=== PATIENT | female | born 1965 | race Caucasian/White ===

== ENCOUNTER 2024-05-23 01:38 | Emergency (ER) | payer OTHER, SELFPAY ==
[2024-05-23 01:49] VITALS: BP 198/94; PULSE 79; TEMP 36.6; O2SAT 99; BMI 45.0
--- NOTE | 2024-05-23 01:59 | PC.NURSE ---
Small flap laceration planter section of foot.
--- NOTE | 2024-05-23 02:00 | XR_ITS ---
The [address] [address] Patient Name: LASHA HUNT MRN: [id number] date: 1965 Sex: F Assigned Patient Location: ER Current Patient Location: Accession/Order Number: [id number] Exam Date: 05/23/2024 02:10 Report Date: 05/23/2024 04:19 At the request of: GALLO MARKER Procedure: XR foot LT min 3V PROCEDURE: XR foot LT min 3V HISTORY: R/O FB, fell thru glass table COMPARISON: None. FINDINGS: BONES:Moderate-marked degenerative changes of the midfoot and forefoot. No acute fracture or dislocation. SOFT TISSUES:Soft tissue swelling/edema surrounding the foot. No radiopaque foreign body with specific attention to the plantar surface. EFFUSION:None visible. OTHER: Negative. XR/XR foot LT min 3V IMPRESSION: 1. No radiopaque foreign body. 2. No acute bone abnormality. Electronically authenticated by: FRANCHESKA CISNEROS Date: 05/23/2024 04:19
--- NOTE | 2024-05-23 02:01 | ED_ITS ---
HPI HPI - Fall General Chief Complaint: Fall Stated Complaint: FALL Time Seen by Provider: 05/23/24 01:42 Source: patient Mode of arrival: walk-in Limitations: no limitations History of Present Illness HPI Narrative: This 59-year-old female presents for evaluation of a left foot laceration. The patient was trying to cover up her air conditioner and fell thru a glass table sustaining a laceration to the base of her left foot. She denies striking her head. She has no neck or back pain. She does not know the date of her last tetanus shot. Related Data Allergies Allergy/AdvReac Type Severity Reaction Status Date / Time Penicillins Allergy Mild Blister Verified 05/23/24 01:54 Opioid HPI Opioid Management Most Recent Pain and Opioid Data: No Data to Display Exam Narrative Exam Narrative: Vital signs and Nursing Notes reviewed: Patient is afebrile with a normal pulse, blood pressure is elevated at 198/94, she is not hypoxic with pulse ox of 99% on room air General: Awake, alert, oriented, no acute distress, lying comfortably on the stretcher HEENT: Normocephalic atraumatic, mucous membranes are moist and pink, eyes are clear, normal conjunctiva, vision is grossly intact Neck: Nontender Chest: Lungs are clear to auscultation with good air entry, there is no wheezing rhonchi or rales appreciated no accessory muscle use, patient is speaking in complete sentences-no chest wall tenderness to palpation CVS: Regular rate and rhythm S1-S2, no murmurs rubs or gallops, pulses are brisk and equal bilaterally ABD: Soft, nondistended, nontender, no rebound guarding or rigidity, bowel sounds are normal, no pulsatile masses appreciated Musculoskeletal: There is no cervical, thoracic or lumbar tenderness to palpation Extremities: Proximally 1.5 cm avulsion laceration to the plantar aspect of the left foot. There is no notable foreign body or active bleeding noted. Patient has a large bunion on her first metatarsal and lateral deviation of her toes which appear to be arthritic in nature. Skin: Normal in appearance without rash,pallor, petechiae or purpura Neuro: No focal deficits Constitutional Vital Signs, click to edit/add: Last Vital Signs Temp 97.9 F 05/23/24 01:49 Pulse 79 05/23/24 01:49 Resp 20 05/23/24 01:49 BP 198/94 H 05/23/24 01:49 Pulse Ox 99 05/23/24 01:49 O2 Del Method Room Air 05/23/24 01:49 Course Vital Signs Vital signs: Vital Signs Temperature 97.9 F 05/23/24 01:49 Pulse Rate 79 05/23/24 01:49 Respiratory Rate 20 05/23/24 01:49 Blood Pressure 198/94 H 05/23/24 01:49 Pulse Oximetry 99 05/23/24 01:49 Oxygen Delivery Method Room Air 05/23/24 01:49 Temperature 97.9 F 05/23/24 01:49 Pulse Rate 79 05/23/24 01:49 Respiratory Rate 20 05/23/24 01:49 Blood Pressure 198/94 H 05/23/24 01:49 Pulse Oximetry 99 05/23/24 01:49 Oxygen Delivery Method Room Air 05/23/24 01:49 MDM - Fall MDM Narrative Medical decision making narrative: This 59-year female presents for evaluation of a laceration to her left foot after she fell through a glass table while trying to cover up her air conditioner in her house. She denies any additional injury. She has an approximately 1.5 cm stellate laceration to the plantar aspect of the left foot. There is no active bleeding. X-ray of the extremity does not show any fracture or foreign body. Tetanus was updated. The laceration was closed and the patient's foot was covered with a sterile bacitracin dressing. Discharge Plan Discharge Chief Complaint: Fall Clinical Impression: Laceration of foot Patient Disposition: Home, Self-Care Time of Disposition Decision: 02:53 Condition: Good Print Language: Italian Instructions: Care For Your Stitches (ED), Laceration (ED) Additional Instructions: Sutures can be removed in 10 days by your family physician. Keep your foot covered. Use bacitracin and a Band-Aid. Return to the emergency department for pain, redness, drainage or any concerns. Referrals: GAL HARLEY [Primary Care Provider] - 1 week Discharge Date/Time: 05/23/24 03:16 Procedures ED Procedure Instructions Procedures Procedures: Laceration repair; the left foot was cleaned with Hibiclens and water and infiltrated with 1% lidocaine. Once anesthesia was obtained 4, 3-0 Ethilon sutures were placed in the laceration with good wound edge approximation. Patient tolerated procedure well. A sterile bacitracin dressing was applied by the nursing staff.
[2024-05-23] MEDS: ADACEL DIPH,PERTUSS(ACELL),TET VAC/PF 0.5 ML ADULT SYRINGE IM (03:01)
[2024-05-23] MEDS: BACITRACIN 0.9 GM PACKET 1 PACKET TOPICAL (03:01)
[2024-05-23] MEDS: LIDOCAINE HCL 1% 100 MG/10 ML MDV INJ (03:03)
== END 2024-05-23 03:16 | disposition home or self-care (01) ==
PROVIDERS: Emergency Provider Emergency Medicine; Family Provider Internal Medicine; PCP Internal Medicine
DX: S91.312A Laceration without foreign body, left foot, initial encounter (principal); W25.XXXA Contact with sharp glass, initial encounter; Z23 Encounter for immunization
CPT/HCPCS: 12001; 73630; 90471; 90715; 99284

== ENCOUNTER 2025-01-07 17:01 | Inpatient (IN) | payer OTHER, SELFPAY ==
[2025-01-07 17:10] VITALS: BP 120/95; PULSE 85; TEMP 36.7; O2SAT 97; BMI 43.2
[2025-01-07] MEDS: 0.9 % SODIUM CHLORIDE 1,000 ML 1000 ML IV ×2 (17:33→19:01)
[2025-01-07 18:00] LABS: Hematocrit 40.3 % (36.0-48.0); Hemoglobin 13.6 g/dL (12.0-16.0); Immature Granulocytes Abs Auto 0.04 10^3/uL (0.00-0.03); Immature Granulocytes Pct Auto 0.3 % (0.0-0.5); Lymphocytes Absolute Auto 1.4 10^3/uL (1.2-3.8); Mean Corpuscular HGB Conc 33.7 g/dL (29.9-35.2); Mean Corpuscular Hemoglobin 29.4 pg (26.7-34.0); Mean Corpuscular Volume 87.2 fL (81.0-99.0); Platelet Count 301 10^3/uL (150-450); Red Blood Count 4.62 10^6/uL (4.20-5.40); White Blood Count 14.8 10^3/uL (4.0-11.0)
--- NOTE | 2025-01-07 18:21 | ED.GENADUL1 ---
HPI HPI - General Adult General Chief complaint: Nausea/Vomiting/Diarrhea Stated complaint: DEHYDRATED Time Seen by Provider: 01/07/25 17:08 Source: patient Mode of arrival: walk-in History of Present Illness HPI narrative: 59-year-old female presents because she is worried she is dehydrated. She has had some diarrhea for about 5 days. No recent hospitalization or antibiotic use. She threw up for the first time today. She states she has not really been able to eat or drink anything for the past 2 days. No fever. She has had abdominal cramps but does not complain of abdominal pain. Related Data Home Medications ?Medication ?Instructions ?Recorded ?Confirmed lisinopril 20 mg tablet 20 mg PO BID 01/07/25 01/07/25 Allergies Allergy/AdvReac Type Severity Reaction Status Date / Time azithromycin Allergy Severe Unknown Verified 01/07/25 17:16 Penicillins Allergy Mild Blister Verified 05/23/24 01:54 Review of Systems ROS Narrative A ten point review of systems is negative except as noted above. PFSH PFSH Social History Little interest or pleasure in doing things: not at all Feeling down, depressed, or hopeless: not at all Exam Narrative Exam Narrative: Nurses note and vital signs reviewed and patient is not hypoxic. General: The patient appears well and in no apparent distress. Patient is resting comfortably on cart. Skin: Warm, dry, no pallor noted. There is no rash noted. Head: Normocephalic, atraumatic Eye: Normal conjunctiva, no drainage Ears, Nose, Mouth, and Throat: oral mucosa is moist. Nares patent. Cardiovascular: Regular Rate and Rhythm Respiratory: Patient is in no distress, no accessory muscle use, lungs are clear to auscultation, no wheezing, rales or rhonchi Back: non-tender GI: Soft and nontender Musculoskeletal: The patient has no evidence of calf tenderness, no pitting edema, symmetrical pulses noted bilaterally Neurological: A&O, normal speech Psychiatric: Cooperative Constitutional Vital Signs, click to edit/add: Last Vital Signs Temp 98.1 F 01/07/25 17:10 Pulse 85 01/07/25 17:10 Resp 18 01/07/25 17:10 BP 120/95 H 01/07/25 17:10 Pulse Ox 97 01/07/25 17:10 O2 Del Method Room Air 01/07/25 17:10 Course Vital Signs Vital signs: Vital Signs Temperature 98.1 F 01/07/25 17:10 Pulse Rate 85 01/07/25 17:10 Respiratory Rate 18 01/07/25 17:10 Blood Pressure 120/95 H 01/07/25 17:10 Pulse Oximetry 97 01/07/25 17:10 Oxygen Delivery Method Room Air 01/07/25 17:10 Temperature 98.1 F 01/07/25 17:10 Pulse Rate 85 01/07/25 17:10 Respiratory Rate 18 01/07/25 17:10 Blood Pressure 120/95 H 01/07/25 17:10 Pulse Oximetry 97 01/07/25 17:10 Oxygen Delivery Method Room Air 01/07/25 17:10 Medical Decision Making MDM Narrative Medical decision making narrative: The patient has elevated BUN and creatinine. Her creatinine is 2.35. She is ordered 2 L of saline and the patient will be signed out to Dr. Meeks at change of shift. Differential Diagnosis Differential Diagnosis: Dehydration, acute kidney injury, gastroenteritis Lab Data Lab results reviewed: Yes I reviewed the patient's lab results Labs: Lab Results 01/07/25 Range/Units 17:30 WBC 14.8 H (4.0-11.0) 10^3/uL RBC 4.62 (4.20-5.40) 10^6/uL Hgb 13.6 (12.0-16.0) g/dL Hct 40.3 (36.0-48.0) % MCV 87.2 (81.0-99.0) fL MCH 29.4 (26.7-34.0) pg MCHC 33.7 (29.9-35.2) g/dL RDW 13.9 (11.0-15.0) % Plt Count 301 (150-450) 10^3/uL MPV 11.1 (9.5-13.5) fL Neut % (Auto) 85.5 H (43.0-75.0) % Lymph % (Auto) 9.3 L (20.5-60.0) % [place] % (Auto) 4.3 (1.7-12.0) % Eos % (Auto) 0.1 L (0.9-7.0) % Baso % (Auto) 0.5 (0.2-2.0) % Neut # (Auto) 12.7 H (1.4-6.5) 10^3/uL Lymph # (Auto) 1.4 (1.2-3.8) 10^3/uL [place] # (Auto) 0.6 (0.3-0.8) 10^3/uL Eos # (Auto) 0.0 (0.0-0.7) 10^3/uL Baso # (Auto) 0.1 (0.0-0.1) 10^3/uL Abs Immat Gran (auto) 0.04 H (0.00-0.03) 10^3/uL Imm/Tot Granulo (auto) 0.3 (0.0-0.5) % Sodium 139 (136-145) mmol/L Potassium 4.9 (3.5-5.1) mmol/L Chloride 104 (98-107) mmol/L Carbon Dioxide 16.8 L (21.0-32.0) mmol/L Anion Gap 23.1 BUN 59.0 H (7.0-18.0) mg/dL Creatinine 2.35 H (0.55-1.02) mg/dL Est GFR ( Amer) 25 L (>=60 mL/min/1.73m^2) Est GFR (Non-Af Amer) 21 L (>=60 mL/min/1.73m^2) BUN/Creatinine Ratio 25.1 Glucose 116 H (74-106) mg/dL Calcium 9.4 (8.5-10.1) mg/dL Discharge Plan Discharge Patient Disposition: Still a Patient
[2025-01-07 18:32] LABS: Anion Gap 23.1; Blood Urea Nitrogen 59.0 mg/dL (7.0-18.0); Calcium 9.4 mg/dL (8.5-10.1); Carbon Dioxide 16.8 mmol/L (21.0-32.0); Chloride 104 mmol/L (98-107); Estimated GFR (African America 25 (>=60 mL/min/1.73m^2); Estimated GFR (Non-African Ame 21 (>=60 mL/min/1.73m^2); Glucose 116 mg/dL (74-106); Potassium 4.9 mmol/L (3.5-5.1); Sodium 139 mmol/L (136-145)
[2025-01-07 18:39] VITALS: PULSE 71; O2SAT 99
[2025-01-07 19:56] LABS: Lactate/Lactic Acid 1.4 mmol/L (0.4-2.0)
[2025-01-07 20:59] LABS: Glucose Urine UA NEGATIVE (NEGATIVE)
[2025-01-07 21:13] VITALS: BP 151/72; PULSE 78; TEMP 36.4; O2SAT 93; BMI 44.2
[2025-01-07 21:19] LABS: Cast Seen? NONE SEEN #/LPF (NONE SEEN); Crystals Seen? None Seen #/HPF (None Seen)
[2025-01-07 21:20] LABS: Urine Culture Indicated NO
[2025-01-07] MEDS: 0.9 % SODIUM CHLORIDE 1,000 ML 125 ML IV (21:36)
--- NOTE | 2025-01-08 00:56 | US_ITS ---
The [address] [address] Patient Name: LASHA HUNT MRN: [id number] date: 1965 Sex: F Assigned Patient Location: Current Patient Location: Accession/Order Number: [id number] Exam Date: 01/08/2025 10:11 Report Date: 01/08/2025 10:13 At the request of: GISELL MCKEON MD Procedure: US renal BI BILATERAL RENAL AND BLADDER ULTRASOUND CLINICAL HISTORY: Renal failure. Nausea, vomiting and dehydration. COMPARISON: None Estimation of renal size is approximately 10.1 cm on the right and 8.6 cm on the left. No shadowing calculi or hydronephrosis are identified. A small exophytic cyst is noted at the lateral left kidney measuring 10 x 11 x 13 mm. There is no perinephric fluid. Incidental note is made of 2 stones within the gallbladder lumen. The urinary bladder is partially distended with a volume of 421 mL. No contour or intraluminal abnormalities are seen. US/US renal BI IMPRESSION: SMALL LEFT RENAL CYST. NO OBSTRUCTIVE UROPATHY. INCIDENTAL CHOLELITHIASIS. Impression dictated by: Whitney Collado M.D. 01/08/2025 10:13 AM Dictation Location: [place] [address] Electronically authenticated by: [id number] Y Date: 01/08/2025 10:13
[2025-01-08 03:55] VITALS: BP 124/71; PULSE 64; TEMP 36.9; O2SAT 94
[2025-01-08] MEDS: 0.9 % SODIUM CHLORIDE 1,000 ML 125 ML IV (06:12)
[2025-01-08 06:14] LABS: Hematocrit 34.7 % (36.0-48.0); Hemoglobin 11.4 g/dL (12.0-16.0); Immature Granulocytes Abs Auto 0.03 10^3/uL (0.00-0.03); Immature Granulocytes Pct Auto 0.3 % (0.0-0.5); Lymphocytes Absolute Auto 2.9 10^3/uL (1.2-3.8); Mean Corpuscular HGB Conc 32.9 g/dL (29.9-35.2); Mean Corpuscular Hemoglobin 29.3 pg (26.7-34.0); Mean Corpuscular Volume 89.2 fL (81.0-99.0); Platelet Count 228 10^3/uL (150-450); Red Blood Count 3.89 10^6/uL (4.20-5.40); White Blood Count 10.8 10^3/uL (4.0-11.0)
--- OUTSIDE RECORDS SUMMARY | 2025-01-08 06:20 | XMS_ITS | Encounter Summary ---
Author Organization [facility] Address [facility] [id number] [address] [place] [address] Care Team Providers Care Coin Machine Mechanic Name Role Phone Lane Harrison MD Primary Care Provider [phone] Reason for Visit * Reason Comments Med Refill Encounter Details Date Type Department Care Team (Late st Contact Info) Description 06/30/2020 Refill [facility] [address] [place] [address] [place] [address] [place] [address] Lane Harrison MD [address] [place] [address], [address] [place] [address] Social History Tobacco Use Types Packs/Day Years Used Date Smoking Tobacco: Never Assessed Childcare Answer Date Recorded Childcare Unknown 12/05/2018 Employment Answer Date Recorded Employment Unknown 12/05/2018 Comments Unknown Sex and Gender Information Value Date Recorded Sex Assigned at Not on file Legal Sex Female 11:24 AM EDT Gender Identity Not on file Sexual Orientation Not on file documented as of this encounter Miscellaneous Notes * Telephone Encounter - Bertha Martines CMA - 06/30/2020 3:12 PM EST duplicate documented in this encounter Plan of Treatment Not on file documented as of this encounter Visit Diagnoses Not on filedocumented in this encounter Care Teams Coin Machine Mechanic Relationship Specialty Start Date End Date Lane Harrison MD [address] [place] [address], [address] [place] [address] PCP - General Pediatrics 12/26/17 documented as of this encounter
--- OUTSIDE RECORDS SUMMARY | 2025-01-08 06:20 | XMS_ITS | Encounter Summary ---
Author Organization [facility] [employer] [facility] Address [facility] [id number] [address] [place] [address] Care Team Providers Care Ruby On Rails Software Developer Name Role Phone Lane Harrison MD Primary Care Provider [phone] Reason for Visit * Reason Comments Med Refill Encounter Details Date Type Department Care Team (Late st Contact Info) Description 11/04/2022 Refill [facility] [address] [place] [address] [address] [place] [address] Lane Harrison MD [address] [place] [address], [address] [place] [address] Social History Tobacco Use Types Packs/Day Years Used Date Smoking Tobacco: Never Smokeless Tobacco: Never Alcohol Use Standard Drinks/Week Comments Never 0 (1 standard drink = 0.6 oz pur e alcohol) AUDIT-C Answer Date Recorded Q1: How often do you have a drink containing alc ohol? Never 07/23/2020 Q2: How many drinks containi ng alcohol do you have on a typical day when you are drinking? Not asked 07/23/2020 Q3: How often do you have six or more drinks on one occasion? Never 07/23/2020 PHQ-2 Answer Date Recorded Total Score 0 07/23/2020 Childcare Answer Date Recorded Childcare Unknown 12/05/2018 Employment Answer Date Recorded Employment Unknown 12/05/2018 Purpose - Life Answer Date Recorded Purpose and direction in life Unknown Comments No Sex and Gender Information Value Date Recorded Sex Assigned at Not on file Legal Sex Female 11:24 AM EDT Gender Identity Not on file Sexual Orientation Not on file documented as of this encounter Miscellaneous Notes * Telephone Encounter - Bertha Martines CMA - 11/04/2022 9:51 AM EDT Patient needs an appointment for further refills documented in this encounter Plan of Treatment Not on file documented as of this encounter Visit Diagnoses Not on filedocumented in this encounter Additional Health Concerns Assessment Noted Time PHQ-9 Depression Total Score: 0 07/23/19 10:36 AM EST documented as of this encounter Care Teams Ruby On Rails Software Developer Relationship Specialty Start Date End Date Lane Harrison MD [address] [place] [address], [address] [place] [address] PCP - General Pediatrics 12/26/17 documented as of this encounter
--- OUTSIDE RECORDS SUMMARY | 2025-01-08 06:20 | XMS_ITS | Encounter Summary ---
Author Organization [facility] Address [facility] [id number] [address] [place] [address] Care Team Providers Care Linen Tech Name Role Phone Lane Harrison MD Primary Care Provider [phone] Encounter Details Date Type Department Care Team (Late st Contact Info) Description 05/03/2023 Orders Only [facility] [address] [facility] 1 [place] [address] Bertha Martines CMA Chronic pain of both knees Social History Tobacco Use Types Packs/Day Years [...] PHQ-2 Answer Date Recorded Total Score 0 01/03/2023 Childcare Answer Date Recorded Childcare Unknown 12/05/2018 Employment Answer Date Recorded Employment Unknown 12/05/2018 Hunger Screening Answer Date Recorded Within the past 12 months we worried whether our food would run out before we got money to buy more. Never True 01/03/2023 Within the past 12 months th e food we bought just didn't last and we didn't have money to get more. Never True 01/03/2023 Purpose - Life Answer Date Recorded Purpose and direction in life Unknown Comments No Sex and Gender Information Value Date Recorded Sex Assigned at Not on file Legal Sex Female 11:24 AM EDT Gender Identity Not on file Sexual Orientation Not on file documented as of this encounter Plan of Treatment Not on file documented as of this encounter Visit Diagnoses Diagnosis Chronic pain of both knees documented in this encounter Additional Health Concerns Assessment Noted Time PHQ-9 Depression Total Score: 0 01/04/20 23 3:35 PM EDT documented as of this encounter Care Teams Linen Tech Relationship Specialty Start Date End Date Lane Harrison MD [address] [place] [address], [address] [place] [address] PCP - General Pediatrics 12/26/17 documented as of this encounter
--- OUTSIDE RECORDS SUMMARY | 2025-01-08 06:20 | XMS_ITS | Encounter Summary ---
Author Organization [facility] Address [facility] [id number] [address] [place] [address] Care Team Providers Care Mold Worker Name Role Phone Lane Harrison MD Primary Care Provider Encounter Details Date Type Department Care Team (Late st Contact Info) Description 05/17/2023 Orders Only [facility] [address] [address] External, Scanning Provider Social History Tobacco Use Types Packs/Day Years [...] on file documented as of this encounter Procedures Procedure Name Priority Date/Time Associated Diagnosis Comments SARS COV 2 (COVID-19) STAT 05/16/2023 documented in this encounter Results * SARS COV 2 (COVID-19) (05/16/2023) EXTERNAL SARS COV 2 Negative Negative MANUALLY TRANSCRIBED RESULTS Nasopharyngeal structure / Unknown 05/16/2023 Narrative MANUALLY TRANSCRIBED RESULTS - 05/16/2023 Result in urgent care encounter us Scanning Provider External MICROBIOLOGY - GENERA L ORDERABLES Final Result MANUALLY TRANSCRIBED RESULTS documented in this encounter Visit Diagnoses Not on filedocumented in this encounter Additional Health Concerns Assessment Noted Time PHQ-9 Depression Total Score: 0 01/04/20 23 3:35 PM EDT documented as of this encounter Care Teams Mold Worker Relationship Specialty Start Date End Date Lane Harrison MD [address] [place] [address], [address] [place] [address] PCP - General Pediatrics 12/26/17 documented as of this encounter
--- OUTSIDE RECORDS SUMMARY | 2025-01-08 06:20 | XMS_ITS | Encounter Summary ---
Author Organization [facility] Address [facility] [id number] [address] [place] [address] Care Team Providers Care Septic Pump Truck Driver Name Role Phone Lane Harrison MD Primary Care Provider [phone] Encounter Details Date Type Department Care Team (Late st Contact Info) Description 09/07/2021 Orders Only [facility] [address] [address] External, Scanning Provider Social History [...] Procedure Name Priority Date/Time Associated Diagnosis Comments COLOGUARD Routine 09/03/2020 documented in this encounter Results * HM COLOGUARD (09/03/2020) EXTERNAL COLOGUARD Negative MANUALLY TRANSCRIBED RESULTS 09/03/2020 us Scanning Provider External HEALTH MAINTENANCE nal Result MANUALLY TRANSCRIBED RESULTS documented in this encounter Visit Diagnoses Not on filedocumented in this encounter Additional Health Concerns Assessment Noted Time PHQ-9 Depression Total Score: 0 07/23/19 21 10:36 AM EST documented as of this encounter Care Teams Septic Pump Truck Driver Relationship Specialty Start Date End Date Lane Harrison MD [address] [place] [address], [address] [place], [place] [id number] PCP - General Pediatrics 12/26/17 documented as of this encounter
--- OUTSIDE RECORDS SUMMARY | 2025-01-08 06:20 | XMS_ITS | Encounter Summary ---
Author Organization [facility] Address [id number] [address] [place] [address] Care Team Providers Care Service Station Operator Name Role Phone Lane Harrison MD Primary Care Provider [phone] Reason for Visit * Reason Onset Date Comments Med Refill 11/17/2022 Encounter Details Date Type Department Care Team (Late st Contact Info) Description 11/17/2022 Refill [facility] [address] [id number] Bertha Martines CMA Social History Tobacco Use Types Packs/Day Years [...] documented as of this encounter Care Teams Service Station Operator Relationship Specialty Start Date End Date Lane Harrison MD [address] [place] [address], [address] [place] [address] PCP - General Pediatrics 12/26/17 documented as of this encounter
--- OUTSIDE RECORDS SUMMARY | 2025-01-08 06:20 | XMS_ITS | Encounter Summary ---
Author Organization [facility] Address [facility] [id number] [address] [place] [address] Care Team Providers Care Munitions Worker Name Role Phone Lane Harrison MD Primary Care Provider [phone] Reason for Visit * Reason Comments Med Refill Encounter Details Date Type Department Care Team (Late st Contact Info) Description 01/25/2024 Refill [facility] [address] [place] [address] [address] [place] [address] Lane Harrison MD [address] [place] [address], [address] [place] [address] Social History Tobacco Use Types [...] Telephone Encounter - Bertha Martines CMA - 01/25/2024 5:02 PM EDT duplicate documented in this encounter Plan of Treatment Not on file documented as of this encounter Visit Diagnoses Not on filedocumented in this encounter Additional Health Concerns Assessment Noted Time PHQ-9 Depression Total Score: 0 01/04/20 23 3:35 PM EDT documented as of this encounter Care Teams Munitions Worker Relationship Specialty Start Date End Date Lane Harrison MD [address] [place] [address], [place] [address] PCP - General Pediatrics 12/26/17 documented as of this encounter
--- OUTSIDE RECORDS SUMMARY | 2025-01-08 06:20 | XMS_ITS | Clinical Summary ---
Author Organization [facility] tem Address [id number] [address] [place] [address] Care Team Providers Care Commissioner Of Relocation Services Name Role Phone Lane Harrison MD Primary Care Provider [phone] Allergies Active Allergy Reactions Criticality Noted Date Comments Erythromycin GI Disturbance 08/29/2013 Penicillins 12/10/2012 Medications lisinopriL (PRINIVIL,ZESTR IL) 20 mg tablet Take 1 tablet (20 mg total) by mouth in the morning and 1 tablet (20 mg total) before bedtime. 180 tablet 3 03/05/2024 Active Active Problems Problem Noted Date Diagnosed Date Acute left-sided low back pain without sciatica 11/24/2022 Essential hypertension 07/23/2020 Immunizations Immunization Administration Dates Next Due COVID-19, mRNA, LNP-S, PF, 100mcg/0.5mL Dose Family History Medical History Relation Name Comments Cancer Father Lung Breast cancer Mother Cancer Mother breast Breast cancer Sister 1 ALEXIA Cancer Sister 1 ALEXIA breast Breast cancer Sister 2 SOFYA Relation Name Status Comments Father Mother Sister 1 ALEXIA Sister 2 SOFYA Alive Social History Tobacco Use Types Packs/Day Years Used Date Smoking Tobacco: Never Smokeless Tobacco: Never Tobacco Cessation:Counseling Given: No Alcohol Use Standard Drinks/Week Comments Never 0 [...] PHQ-2 Answer Date Recorded Total Score 0 03/05/2024 Childcare Answer Date Recorded Childcare Unknown 12/05/2018 Employment Answer Date Recorded Employment Unknown 12/05/2018 Hunger Screening Answer Date Recorded Within the past 12 months we worried whether our food would run out before we got money to buy more. Never True 03/05/2024 Within the past 12 months th e food we bought just didn't last and we didn't have money to get more. Never True 03/05/2024 Purpose - Life Answer Date Recorded Purpose and direction in life Unknown Comments No Sex and Gender Information Value Date Recorded Sex Assigned at Not on file Legal Sex Female 11:24 AM EDT Gender Identity Not on file Sexual Orientation Not on file Last Filed Vital Signs Vital Sign Reading Time Taken Comments Blood Pressure 128/99 03/05/2024 8:24 AM EDT Pulse 79 03/05/2024 8:24 AM EDT Temperature 36.3 C (97.4 F) 06/05/2023 10:29 AM EST Respiratory Rate - - Oxygen Saturation 98% 11/24/2022 11:24 AM EDT Inhaled Oxygen Concentration - - Weight 105.7 kg (233 lb) 03/05/2024 8:24 AM EDT Height 146.1 cm (4' 9.5 ) 03/05/2024 8:24 AM EDT Body Mass Index 49.55 03/05/2024 8:24 AM EDT Plan of Treatment Health Maintenance Due Date Last Done Comments Adult BMI Follow Up Plan 1981 DTaP,Tdap and Td Vaccines (1 - Tdap) 1982 Pap Smear 1984 Zoster (Shingles) Vaccine (1 of 2) 2013 COVID-19 Vaccine ( season) 2024, 11/10/2020 Influenza Vaccine 02/24/2025 Adult BMI Screening 03/05/2025 03/05/2024 Depression Screening 03/05/2025 03/05/2024 Tobacco Screening 03/05/2025 03/05/2024 Colon Cancer Screening 3 Year Cologuard 03/26/2027 1 , 09/03/2020 Medical Devices Not on file Procedures Procedure Name Priority Date/Time Associated Diagnosis Comments COLOGUARD NON-[facility] Routine 03/26/2024 6:45 AM EDT Screening for colon cancer from Last 3 Months or Most Recently Relevant to Health Maintenance Results * Cologuard Non-[facility] (03/26/2024 6:45 AM EDT) EXTERNAL COLOGUARD Negative Negative 2023 8:38 PM EDT [facility] (CLIA #:[id number]) Comment: NEGATIVE TEST RESULT. A negative Cologuard result indicates a low likelihood that a colorectal cancer (CRC) or advanced adenoma (adenomatous polyps with more advanced pre-malignant features) is present. The chance that a person with a negative Cologuard test has a colorectal cancer is less than 1 in 1500 (negative predictive value >99.9%) or has an advanced adenoma is less than 5.3% (negative predictive value 94.7%). These data are based on a prospective cross-sectional study of 10,000 individuals at average risk for colorectal cancer who were screened with both Cologuard and colonoscopy. (Damaris Mak et al, N Engl J Med 2014;370(14):1617-1052) The normal value (reference range) for this assay is negative. COLOGUARD RE-SCREENING RECOMMENDATION: Periodic colorectal cancer screening is an important part of preventive healthcare for asymptomatic individuals at average risk for colorectal cancer. Following a negative Cologuard result, the [place] Cancer Society and U.S. Multi-Society Task Force screening guidelines recommend a Cologuard re-screening interval of 3 years. References: [place] [employer] Guideline for Colorectal Cancer Screening: https://www.cancer.org/cancer/dyzem-ejivxq-hwqlzv/mshmeefrz-dejbzfbix-yeyjvnx/ac s-rec ommendations.html.; Ramon ALVRAEZ, Ed LANZA, Porter TYLER, Colorectal Cancer Screening: Recommendations for Physicians and Patients from the U.S. Multi-Society Task Force on Colorectal Cancer Screening , Am J Gastroenterology 2017; 112:2138-0122. TEST DESCRIPTION: Composite algorithmic analysis of stool DNA-biomarkers with hemoglobin immunoassay. Quantitative values of individual biomarkers are not reportable and are not associated with individual biomarker result reference ranges. Cologuard is intended for colorectal cancer screening of adults of either sex, 45 years or older, who are at average-risk for colorectal cancer (CRC). Cologuard has been approved for use by the U.S. FDA. The performance of Cologuard was established in a cross sectional study of average-risk adults aged 50-84. Cologuard performance in patients ages 45 to 49 years was estimated by sub-group analysis of near-age groups. Colonoscopies performed for a positive result may find as the most clinically significant lesion: colorectal cancer [4.0%], advanced adenoma (including sessile serrated polyps greater than or equal to 1cm diameter) [20%] or non- advanced adenoma [31%]; or no colorectal neoplasia [45%]. These estimates are derived from a prospective cross-sectional screening study of 10,000 individuals at average risk for colorectal cancer who were screened with both Cologuard and colonoscopy. (Damaris Marques al, N Engl J Med 2014;370(14):3530-2600.) Cologuard may produce a false negative or false positive result (no colorectal cancer or precancerous polyp present at colonoscopy follow up). A negative Cologuard test result does not guarantee the absence of CRC or advanced adenoma (pre-cancer). The current Cologuard screening interval is every 3 years. ([place] Cancer Society and U.S. Multi-Society Task Force). Cologuard performance data in a 10,000 patient pivotal study using colonoscopy as the reference method can be accessed at the following location: www.[employer]/results. Additional description of the Cologuard test process, warnings and precautions can be found at www.[employer].com. Stool specimen (specimen) Rectum structure / Unknown 03/26/2024 6:45 AM EDT 03/27/2024 10:[address] Harrison MD LAB ORDERABLES Final Result [facility] (CLIA #:[id number]) [place] [address], from Last 3 Months or Most Recently Relevant to Health Maintenance Insurance [employer] Care Teams Commissioner Of Relocation Services Relationship Specialty Start Date End Date Lane Harrison MD [address] [place] [address], [address] [place] [address] PCP - General Pediatrics 12/26/17
--- OUTSIDE RECORDS SUMMARY | 2025-01-08 06:20 | XMS_ITS | Encounter Summary ---
[facility] Address [id number] [address] [place] [address] Care Team Providers Care Community Health Specialist Name Role Phone Lane Harrison MD Primary Care Provider [phone] Reason for Visit * Reason Onset Date Comments Med Refill 01/25/2024 Encounter Details Date Type Department Care Team (Late st Contact Info) Description 01/25/2024 Refill [facility] [address] [phone] Bertha Martines CMA Social History Tobacco Use [...] documented as of this encounter Care Teams Community Health Specialist Relationship Specialty Start Date End Date Lane Harrison MD [address] [place] [address], [address] [place] [address] PCP - General Pediatrics 12/26/17 documented as of this encounter
--- OUTSIDE RECORDS SUMMARY | 2025-01-08 06:20 | XMS_ITS | Encounter Summary ---
Author Organization [facility] Address [id number] [address] [place] [address] Care Team Providers Care Assistant Secretary Name Role Phone Lane Harrison MD Primary Care Provider [phone] Encounter Details Date Type Department Care Team (Late st Contact Info) Description 05/27/2024 Orders Only [facility] [address] [phone] External, Scanning Provider Social History [...] Procedure Name Priority Date/Time Associated Diagnosis Comments XR FOOT LT MIN 3 VWS Routine 05/23/2024 documented in this encounter Results * X-ray foot left minimum 3 views (05/23/2024) Anatomical Region Laterality Modality Lower Extremities, MSK, Foot Left Com puted Radiography 05/23/2024 us Scanning Provider External IMG DIAGNOSTIC IMAGIN G ORDERABLES Final Result documented in this encounter Visit Diagnoses Not on filedocumented in this encounter Additional Health Concerns Assessment Noted Time PHQ-9 Depression Total Score: 0 03/05/20 24 8:26 AM EDT documented as of this encounter Care Teams Assistant Secretary Relationship Specialty Start Date End Date Lane Harrison MD [address] [place] [address], [place] [address] PCP - General Pediatrics 12/26/17 documented as of this encounter
--- OUTSIDE RECORDS SUMMARY | 2025-01-08 06:20 | XMS_ITS | Clinical Summary ---
Author Organization [facility] Healthcare Address [address] [place] [address] Care Team Providers Care Bird Cage Assembler Name Role Phone Unavailable Primary Care Provider Unavailabl e Social History Tobacco Use Types Packs/Day Years Used Date Smoking Tobacco: Never Assessed Comments Unknown Sex and Gender Information Value Date Recorded Sex Assigned at Not on file Legal Sex Female 8:24 PM EDT Gender Identity Not on file Sexual Orientation Not on file Last Filed Vital Signs Vital Sign Reading Time Taken Comments Blood Pressure 158/93 12/26/2017 12:00 PM EDT Pulse - - Temperature - - Respiratory Rate - - Oxygen Saturation - - Inhaled Oxygen Concentration - - Weight 108 kg (238 lb) 12/26/2017 12:00 PM EDT Height 152.4 cm (5') 12/26/2017 12:00 PM EDT Body Mass Index 46.48 12/26/2017 12:00 PM EDT Plan of Treatment Not on file
--- OUTSIDE RECORDS SUMMARY | 2025-01-08 06:20 | XMS_ITS | Encounter Summary ---
[id number] [address] [place] [address] Care Team Providers Care Registered Nurse Renal Name Role Phone Lane Harrison MD Primary Care Provider [phone] Encounter Details Date Type Department Care Team (Late st Contact Info) Description 01/29/2024 Telephone [facility] [address] [phone] Bertha Martines CMA Social History Tobacco Use [...] documented as of this encounter Care Teams Registered Nurse Renal Relationship Specialty Start Date End Date Lane Harrison MD [address] [place] [address], [address] [place] [address] PCP - General Pediatrics 12/26/17 documented as of this encounter
[2025-01-08 06:34] LABS: Alanine Aminotransferase 23 U/L (14-59); Albumin Globulin Ratio 1.1; Albumin Level 3.0 g/dL (3.4-5.0); Alkaline Phosphatase 65 U/L (46-116); Anion Gap 15.5; Aspartate Amino Transferase 17 U/L (15-37); Blood Urea Nitrogen 44.0 mg/dL (7.0-18.0); Calcium 7.9 mg/dL (8.5-10.1); Carbon Dioxide 19.1 mmol/L (21.0-32.0); Chloride 114 mmol/L (98-107); Estimated GFR (African America >60 (>=60 mL/min/1.73m^2); Estimated GFR (Non-African Ame 58 (>=60 mL/min/1.73m^2); Globulin 2.7 g/dL; Glucose 101 mg/dL (74-106); Magnesium 2.0 mg/dL (1.8-2.4); Potassium 4.6 mmol/L (3.5-5.1); Sodium 144 mmol/L (136-145); Total Protein 5.7 g/dL (6.4-8.2)
[2025-01-08 08:00] VITALS: BP 98/60; PULSE 59; TEMP 36.4; O2SAT 96
[2025-01-08] MEDS: ENOXAPARIN SODIUM 30 MG/0.3 ML SYRINGE SUBQ (09:13)
--- NOTE | 2025-01-08 09:47 | CM.NOTE ---
Reviewed plan of care with Dr. Hathaway. Continue with current treatment plan. No discharge today.
--- NOTE | 2025-01-08 11:14 | P.HP_ITS ---
HPI H&P: HPI History of Present Illness Chief complaint: DEHYDRATED, JONA Narrative: Mrs. Mustafa is a 59-year-old female who came to the emergency room complaining of vomiting for 1 day and having diarrhea for 5 days. Abdominal cramps but no pain. No fever or chills. No hematemesis or melena. No recent travel. No recent unusual food intake. Patient was found to have JONA with metabolic acidosis. She takes ibuprofen and lisinopril. Opioid HPI Opioid Management Most Recent Pain and Opioid Data: Last Pain Assessment 01/07/25, 22:00 Last ORT Total Score 0 01/07/25, 21:13 Last ORT Risk Category Low Risk 01/07/25, 21:13 Review of Systems ROS Status of ROS 10 or more systems reviewed and unremark able except as noted in history and below [facility] Medical History (Updated 01/08/25 @ 11:15 by Mary Ann Hathaway MD) HTN (hypertension) ?I10 - Essential (primary) hypertension (ICD-10) Surgical History (Updated 01/07/25 @ 21:27 by Katlin Riggins RN) History of ear surgery ?Z98.890 - Other specified postprocedural states (ICD-10) Hx of tonsillectomy ?Z90.89 - Acquired absence of other organs (ICD-10) Hx of appendectomy ?Z90.49 - Acquired absence of other specified parts of digestive tract (ICD- 10) Family History (Updated 01/07/25 @ 21:28 by Katlin Riggins, JOVANNY) Father Family history of COPD (chronic obstructive pulmonary disease) Family history of cancer Family history of diabetes mellitus Mother Family history of cancer Family history of diabetes mellitus Sister Family history of cancer Family history of diabetes mellitus Social History (Updated 01/07/25 @ 21:29 by Katlin Riggins RN) Within the past year, how often did you have a drink containing alcohol: monthly or less Smoking status: Never smoker Non-prescribed substance use: denies use Known occupational exposures/hazards: No Highest level of school completed/degree received: Associate degree: occupational, technical, vocational program Are you now , , , , never or living with a partner: never In a typical week, how many times do you talk on the telephone with family, friends, or neighbors: 3 or more times per week How often do you get together with friends or relatives: 3 or more times per week Little interest or pleasure in doing things: not at all Feeling down, depressed, or hopeless: not at all Feel stressed/tense/nervous/anxious/difficulty sleeping: not at all Do you think of yourself as: straight/heterosexual Gender Identity: female Meds Home Medications and Allergies Home Medications ?Medication ?Instructions ?Recorded ?Confirmed ?Type ibuprofen 200 mg tablet (IBU-200) 200 mg PO TID-QID MI N pain 01/07/25 01/07/25 History lisinopril 20 mg tablet 20 mg PO BID 01/07/25 History Allergies Allergy/AdvReac Type Severity Reaction Status Date / Time azithromycin Allergy Severe Unknown Verified 01/07/25 17:16 Penicillins Allergy Mild Blister Verified 05/23/24 01:54 Exam Narrative Exam Narrative: [pt is awake and alert. oriented to place, time and person HEENT: [place] conjunctiva and dry buccal mucosa Neck: Supple, no tenderness Endocrine: No Thyromegaly. Vascular: No JVD or carotid bruit. Lymphatic: No cervical lymphadenopathy. Chest: CTA no DTP. Heart RRR, no extra sound or murmur. Abd: Soft, no tenderness, no rebound and no rigidity. Increase abd girth therefore clinically I could not exclude the possibility of intra abd mass or organomegaly. LE: No cyanosis or clubbing, no varices or edema. Neuro: A A O. Nl speech, comprehension and attention. Nl and symetrical motor and tone examination through out. []] Constitutional Vital Signs, click to edit/add: Last Vital Signs Temp 97.6 F 01/08/25 08:00 Pulse 59 L 01/08/25 08:00 Resp 16 01/08/25 08:00 BP 124/71 01/08/25 03:55 Pulse Ox 96 01/08/25 08:00 O2 Del Method Room Air 01/08/25 08:00 Results Labs Labs: Short CBC 01/07/25 01/08/25 Range/Units 17:30 05:58 WBC 14.8 H 10.8 (4.0-11.0) 10^3/uL Hgb 13.6 11.4 L (12.0-16.0) g/dL Hct 40.3 34.7 L (36.0-48.0) % Plt Count 301 228 (150-450) 10^3/uL BMP 01/07/25 01/08/25 17:30 05:58 Sodium 139 144 Potassium 4.9 4.6 Chloride 104 114 H Carbon Dioxide 16.8 L 19.1 L BUN 59.0 H 44.0 H Creatinine 2.35 H 0.98 Glucose 116 H 101 Calcium 9.4 7.9 L Liver Function 01/08/25 Range/Units 05:58 Total Bilirubin 0.4 (0.2-1.0) mg/dL AST 17 (15-37) U/L ALT 23 (14-59) U/L Alkaline Phosphatase 65 (46-116) U/L Albumin 3.0 L (3.4-5.0) g/dL Urine 01/07/25 Range/Units 20:45 Urine Color Lt. yellow (YELLOW) Urine Clarity Clear (CLEAR) Urine pH 6.0 (5.0-9.0) Ur Specific [place] 1.015 (1.005-1.025) Urine Protein Trace (NEG/TRACE) mg/dL Urine Glucose (UA) Negative (NEGATIVE) mg/dL Assessment and Plan Assessment and Plan (1) Acute kidney injury: (2) Metabolic acidosis: (3) Medication adverse effect: (4) Enteritis: (5) Cholelithiasis: Plan Acute renal injury associated with metabolic acidosis. Likely hemodynamically mediated secondary to volume loss secondary to vomiting and diarrhea. Requested ultrasound to rule out obstructive uropathy. UA showed RBC that could indicate nephritic syndrome however given the resolution of JONA with IV fluid infusion would believe that her JONA is more likely related to volume loss and unlikely related to glomerulonephritis Furthermore, patient was taking lisinopril and ibuprofen that likely contributed to her JONA in the setting of volume depletion These medications are on hold at this time. Hypertension. Keep patient off lisinopril due to JONA Diarrhea and 1 episode of vomiting Resolved. No abdominal pain. No evidence of melena. I assume that this likely related to gastroenteritis. No strong justification for CT imaging of the abdomen and pelvis Consider additional GI investigation if this problem recurs DVT prophylaxis Lovenox subcu Incidental cholelithiasis with normal LFTs. No pain or tenderness in the right upper quadrant.
[2025-01-08 12:00] VITALS: BP 110/68; TEMP 36.4
--- NOTE | 2025-01-08 12:08 | SWNOTE1 ---
SW and I met with pt in room to discuss any potential d/c needs. Pt is from home and she lives alone. Pt voiced she does not use any DME. Does not have services coming into home. I asked pt if she had any concerns for d/c at this time. Pt voiced no. No needs identified at this time. SW to follow as needed.
[2025-01-08 16:00] VITALS: BP 106/72; PULSE 62; TEMP 36.4; O2SAT 95
[2025-01-08 19:42] VITALS: BP 124/70; PULSE 57; TEMP 36.3; O2SAT 94
[2025-01-09] VITALS: BP 122/78; PULSE 60; TEMP 36.6; O2SAT 95
[2025-01-09 04:00] VITALS: BP 117/75; PULSE 56; TEMP 36.3; O2SAT 96
[2025-01-09 06:12] LABS: Anion Gap 14.5; Blood Urea Nitrogen 30.0 mg/dL (7.0-18.0); Calcium 8.4 mg/dL (8.5-10.1); Carbon Dioxide 21.6 mmol/L (21.0-32.0); Chloride 112 mmol/L (98-107); Estimated GFR (African America >60 (>=60 mL/min/1.73m^2); Estimated GFR (Non-African Ame >60 (>=60 mL/min/1.73m^2); Glucose 110 mg/dL (74-106); Potassium 5.1 mmol/L (3.5-5.1); Sodium 143 mmol/L (136-145)
[2025-01-09 07:37] VITALS: BP 111/60; PULSE 60; TEMP 36.5; O2SAT 95
[2025-01-09] MEDS: ENOXAPARIN SODIUM 40 MG/0.4 ML SYRINGE SUBQ (09:07)
--- NOTE | 2025-01-09 10:20 | CM.NOTE ---
Rounds made with Dr. Hathaway, pt will discharge to home today. Pt denies any N/V. Dr. Hathaway will update note on how to resume lisinopril at discharge.
--- NOTE | 2025-01-09 10:56 | PM.DS1 ---
DS: Providers Provider Date of admission: 01/07/25 20:45 Primary care physician: GAL HARLEY DS: Diagnosis Discharge Diagnosis (1) Acute kidney injury: (2) Metabolic acidosis: (3) Medication adverse effect: (4) Enteritis: (5) Cholelithiasis: Plan As listed above and others that are not listed DS: Summary Hospital Course Hospital Course: Mrs. Mustafa is a 59-year-old female who came in with nausea and vomiting as well as diarrhea. Patient was found to have the following Acute renal injury associated with metabolic acidosis. Likely hemodynamically mediated secondary to volume loss secondary to vomiting and diarrhea. Requested ultrasound to rule out obstructive uropathy. This came back negative for obstructive uropathy UA showed RBC that could indicate nephritic syndrome however given the resolution of JONA with IV fluid infusion would believe that her JONA is more likely related to volume loss and unlikely related to glomerulonephritis Furthermore, patient was taking lisinopril and ibuprofen that likely contributed to her JONA in the setting of volume depletion These medications are on hold at this time. Hypertension. Keep patient off lisinopril due to JONA Her blood pressure is still at 111/60 without lisinopril. Discharge patient without lisinopril however her blood pressure is expected to climb up over the next week or 2 therefore patient is instructed to follow-up with her PCP to monitor her blood pressure and reinitiate blood pressure medication in the outpatient setting as deemed to be appropriate. Diarrhea and 1 episode of vomiting Resolved. No abdominal pain. No evidence of melena. I assume that this likely related to gastroenteritis. No strong justification for CT imaging of the abdomen and pelvis no abdominal tenderness. Consider additional GI investigation if this problem recurs DVT prophylaxis Lovenox subcu Incidental cholelithiasis with normal LFTs. No pain or tenderness in the right upper quadrant. Patient has few medical issues as listed above and others that are not listed. All appear to be stable. Patient is feeling great. No nausea or vomiting. No diarrhea. No abdominal pain. No abdominal tenderness. No fever or chills. No hematemesis or melena. I do not have any clear or strong clinical justification to extend inpatient hospitalization. Patient however may require close and frequent monitoring as well as additional work-up, investigation and therapeutic intervention that could take place from this point on post discharge. That is to prevent relapse, decompensation, rehospitalization and other medical implications. I instructed patient to ask her primary care doctor to obtain [facility] record entirely to address abnormalities seen on labs and imaging that I have and have not addressed during this hospitalization, follow-up on pending blood work, imaging and pathology is if available and to follow-up on needed medical care in the outpatient setting. Time Spent with Patient Time attestation: Total time spent providing and/or coordinating discharge services: Time spent: greater than 30 minutes Exam Narrative Exam Narrative: [pt is awake and alert. oriented to place, time and person HEENT: [place] conjunctiva and dry buccal mucosa Neck: Supple, no tenderness Endocrine: No Thyromegaly. Vascular: No JVD or carotid bruit. Lymphatic: No cervical lymphadenopathy. Chest: CTA no DTP. Heart RRR, no extra sound or murmur. Abd: Soft, no tenderness, no rebound and no rigidity. Increase abd girth therefore clinically I could not exclude the possibility of intra abd mass or organomegaly. LE: No cyanosis or clubbing, no varices or edema. Neuro: A A O. Nl speech, comprehension and attention. Nl and symetrical motor and tone examination through out. []] Constitutional Vital Signs, click to edit/add: Last Vital Signs Temp 97.7 F 01/09/25 07:37 Pulse 60 01/09/25 07:37 Resp 16 01/09/25 07:37 BP 111/60 01/09/25 07:37 Pulse Ox 95 01/09/25 07:37 O2 Del Method Room Air 01/09/25 07:37 DS: Data Data Completed and Pending Labs on day of discharge: Labs from last 24 hours 01/09/25 05:49 Sodium 143 Potassium 5.1 Chloride 112 H Carbon Dioxide 21.6 Anion Gap 14.5 BUN 30.0 H Creatinine 0.67 Est GFR ( Amer) >60 Est GFR (Non-Af Amer) >60 BUN/Creatinine Ratio 44.8 Glucose 110 H Calcium 8.4 L Discharge Plan Discharge Disposition: Home, Self-Care Condition: Fair Health Concerns: I may not have addressed or treated all of your medical illnesses or the abnormal blood work or imaging studies during this hospitalization. Please ask your primary care provider to obtain [facility] records entirely to follow up on all of the abnormal physical, laboratory, and imaging findings that I have not addressed. Please return back to the emergency room or seek medical attention if your symptoms worsen or return. Your blood pressure continues to be on the low side even without taking your blood pressure medication lisinopril. I would recommend you to stay off lisinopril for now. Please follow-up with your primary care doctor within a week. Your primary care doctor will monitor your blood pressure and decide if and when to resume blood pressure medication and the appropriate dose needed. Alternatively if you can buy blood pressure machine from a retail pharmacy. To check your blood pressure twice a day. Call your primary care doctor if your systolic blood pressure (the upper blood pressure number ) is climbing above 150 Please avoid taking ibuprofen excessively. No more than 1 or 2 tablets every other day Consider taking Tylenol instead Discharging you from [facility] does not mean that your medical care ends here and now. You may still need additional monitoring, work up, investigation, and treatment plan to be handled from this point on by out patient providers including your primary care provider and specialists. For any medication question, please contact your retail pharmacist or your primary care provider. Thank you. Discharge Medications: Held lisinopril 20 mg tablet 20 mg PO BID Hold Instructions: Resume on 01/17/25. Hold until you see your primary care doctor Discontinued ibuprofen [IBU-200] 200 mg tablet 200 mg PO TID-QID PRN (Reason: pain) Print Language: Zambian Forms: Portal Instructions Follow Up Appointments: 01/16 @ 10:15am with Dr. Harley [phone]
--- NOTE | 2025-01-09 12:06 | CM.NOTE ---
No discharge needs identified for patient, home with self care.
--- NOTE | 2025-01-13 10:56 | CM.DCFOLLOWU ---
1st attempt 01/13/25, no answer
--- NOTE | 2025-01-14 13:51 | CM.DCFOLLOWU ---
2nd attempt 01/14/25, no answer
== END 2025-01-09 12:33 | disposition home or self-care (01) | DRG 683 ==
LOC: ER 20:37 → MS 21:47
PROVIDERS: Emergency Medicine; Admitting Provider Internal Medicine; Emergency Provider Emergency Medicine; Family Provider Internal Medicine; PCP Internal Medicine; Visit Provider Internal Medicine
DX: N17.9 Acute kidney failure, unspecified (principal); E87.20 Acidosis, unspecified; I10 Essential (primary) hypertension; Z79.899 Other long term (current) drug therapy; Z90.49 Acquired absence of other specified parts of digestive tract; K52.9 Noninfective gastroenteritis and colitis, unspecified; K80.20 Calculus of gallbladder without cholecystitis without obstruction; T39.315A Adverse effect of propionic acid derivatives, initial encounter; T46.4X5A Adverse effect of angiotensin-converting-enzyme inhibitors, initial encounter; E86.9 Volume depletion, unspecified
CPT/HCPCS: 36415; 76775; 80048; 80053; 81001; 83605; 83735; 85025; 87045; 87046; 87427; 96361; 96374; 99285; J1650; J2405

== ENCOUNTER 2025-03-06 12:15 | Emergency (ER) | payer OTHER, SELFPAY ==
--- OUTSIDE RECORDS SUMMARY | 2025-03-03 12:05 | XMS_ITS | Continuity of Care Document ---
Author Organization [facility] Address [address] [place] [address] Phone Care Team Providers Care Senior Loan Officer Name Role Phone Lane Harrison MD Primary Care Provider Darleen Melendez APRN Attending Provider Care Teams Patient Care Team Team Status: Active Member Role Status Dates Lane Harrison MD Primary Care Provider Active Patient Care Team Team Status: Inactive Member Role Status Dates Lane Harrison MD Primary Care Provider Active Start: March 03, 2025 End: March 03, 2025 Darleen Melendez APRN Attending Provider Active S tart: March 03, 2025 End: March 03, 2025 Chief Complaint and Reason for Visit Chief Complaint Admit Date Sinus congestion, cough March 03, 2 025 3:11pm Allergies, Adverse Reactions, Alerts Allergen Type Severity Reaction Last Updated Verified Status erythromycin base Allergy Unknown Unknown Reaction S eptember 2024 3:28pm Yes Active penicillin G Allergy Unknown hives February 3:28pm Yes Active Social History Smoking Status Status Start Date End Date Date of Observa tion Never smoked tobacco (finding) November 24, 2023 1:25pm Observation Status Observation Response Date of Response Legal Sex Female (finding) Sex Assigned At Female 1965 Family History Relationship Condition Age at Onset Recorded Date/T evangelina brother Unknown father Malignant neoplasm Unknown mother Unknown Malignant neoplasm Unknown sister Unknown Problems Active Problems Medical Problem Onset Date Status Left hamstring muscle strain Unknown Act ivana Viral URI with cough Unknown Active HTN (hypertension) Unknown Active Medications Medication Status Dose Units Route Directions Qty Days St art Date Stop Date End Date Instructions Adherence Benzonatate 200 mg capsule Active 200 MG PO 2-3 TIMES PER DAY as needed for cough 12 5 2024 12:00a m Complies with drug therapy Lisinopril 20 mg tablet Active 20 MG PO Daily November 24, 2023 12:00a m Complies with drug therapy Naproxen 500 mg tablet Discont inued 500 MG PO Twice daily as needed for pain 30 15 November 24, 2023 12:00a m [facility]2024 3:39p m Cyclobenzap rine 10 mg tablet Discont inued 10 MG PO Three times daily as needed for muscle spasm 15 November 24, 2023 12:00a m 2024 3:39p m Vital Signs Vital Reading Result Reference Range Collection Date/Time Height 60 [in_i] March 03, 2025 3:39pm Weight 104.55 kg March 03, 2025 3:39pm Body Temperature 97.5 [degF] 97.6-99.0 March 032024 3:39pm Heart Rate 76 /min 60-100 March 03, 2025 3:39pm Respiratory rate 19 /min 12-24 March 032024 3:39pm Oxygen saturation by Pulse oximetry 97 % 95-100 March 03, 2025 3:39pm BP Systolic 148 mm[Hg] 100-140 March 03, 2025 3:39pm BP Diastolic 78 mm[Hg] 60-100 March 03, 2025 3:39pm BMI (Body Mass Index) 45.0 kg/m2 2024 3:39pm Advance Directives Advance Directive Response Recorded Date/ Time Advance Directives No November 23 1:10pm Insurance Providers Guarantor Yadira Mustafa Address [address] [place] [phone] Contact Info. Home Phone: Payer Policy Id Subscriber's Name Subscriber Id Effectiv e Date Expiration Date [facility] [id number] Yadira Mustafa [id number] [employer] [id number] Yadira Mustafa [id number] Encounters Encounter Location(s) Arrival/Admit Date Discharge/Depart Date Provider(s) Departed Physician/Prov ider Office Visit -[facility] [place] March 03, 2025 3:11pm March 03, 2025 4:04pm Cherri Mancuso APRN
[2025-03-06] VITALS (7 sets, daily range): BP systolic 166–178; BP diastolic 80–93; PULSE 81; TEMP 36.9; O2SAT 96–99; BMI 46.9
--- OUTSIDE RECORDS SUMMARY | 2025-03-06 12:20 | XMS_ITS | Encounter Summary ---
Author Organization [facility] [employer] [facility] [employer] Address [id number] [address] [place] [address] Care Team Providers Care Auto Motor Mechanic Name Role Phone Lane Harrison MD Primary Care Provider [phone] Reason for Visit * Reason Comments Med Refill Encounter Details Date Type Department Care Team (Late st Contact Info) Description 06/30/2020 Refill [facility] [address] [place] [address] [place] [address] [place] [address] Lane Harrison MD [address] [place] [address], [address] [place] [address] Social History Tobacco Use Types [...] on filedocumented in this encounter Care Teams Auto Motor Mechanic Relationship Specialty Start Date End Date Lane Harrison MD [address] [place] [address], [address] [place] [address] PCP - General Pediatrics 12/26/17 documented as of this encounter
--- OUTSIDE RECORDS SUMMARY | 2025-03-06 12:20 | XMS_ITS | Clinical Summary ---
Author Organization [facility] Address [address] [place] [address] Care Team Providers Care Air Surveillance Operator Name Role Phone Unavailable Primary Care Provider [...]
--- OUTSIDE RECORDS SUMMARY | 2025-03-06 12:20 | XMS_ITS | Encounter Summary ---
Author Organization [facility] Address [id number] [address] [place] [address] Care Team Providers Care Jewelry Repairer Name Role Phone Lane Harrison MD Primary Care Provider [phone] Encounter Details Date Type Department Care Team (Late st Contact Info) Description 01/09/2025 Orders Only [facility] [address] [address] External, Scanning Provider Social History [...] Procedure Name Priority Date/Time Associated Diagnosis Comments US RETROPERITONEAL COMPLETE Routine 01/08/2025 documented in this encounter Results * Ultrasound retroperitoneal complete (01/08/2025) Anatomical Region Laterality Modality Body Ultrasound 01/08/2025 us Scanning Provider External IMG US ORDERABLES Fin al Result documented in this encounter Visit Diagnoses Not on filedocumented in this encounter Additional Health Concerns Assessment Noted Time PHQ-9 Depression Total Score: 0 03/05/20 24 8:26 AM EDT documented as of this encounter Care Teams Jewelry Repairer Relationship Specialty Start Date End Date Lane Harrison MD [address] [place] [address], [address] [place] [address] PCP - General Pediatrics 12/26/17 documented as of this encounter
--- OUTSIDE RECORDS SUMMARY | 2025-03-06 12:20 | XMS_ITS | Encounter Summary ---
Author Organization [facility] Address [id number] [address] [place] [address] Care Team Providers Care Employee Services Manager Name Role Phone Lane Harrison MD Primary Care Provider [phone] Encounter Details Date Type Department Care Team (Late st Contact Info) Description 09/07/2021 Orders Only [facility] [address] [address] External, Scanning Provider Social History [...] documented as of this encounter Care Teams Employee Services Manager Relationship Specialty Start Date End Date Lane Harrison MD [address] [place] [address], [address] [place], [place] [id number] PCP - General Pediatrics 12/26/17 documented as of this encounter
--- OUTSIDE RECORDS SUMMARY | 2025-03-06 12:20 | XMS_ITS | Encounter Summary ---
Author Organization [facility] Address [id number] [address] [place] [address] Care Team Providers Care Parole Or Probation Officer Name Role Phone Lane Harrison MD Primary Care Provider Encounter Details Date Type Department Care Team (Late st Contact Info) Description 07/14/2020 Orders Only [facility] [address] [employer] [employer] [address] [place] [address] External, Scanning Provider Social History Tobacco Use Types Packs/Day Years Used Date Smoking Tobacco: Never Assessed Childcare Answer Date Recorded Childcare Unknown 12/05/2018 Employment Answer Date Recorded Employment Unknown 12/05/2018 Purpose - Life Answer Date Recorded Purpose and direction in life Unknown Comments Unknown Sex and Gender Information Value Date Recorded Sex Assigned at Not on file Legal Sex Female 11:24 AM EDT Gender Identity Not on file Sexual Orientation Not on file documented as of this encounter Plan of Treatment Not on file documented as of this encounter Procedures Procedure Name Priority Date/Time Associated Diagnosis Comments SARS COV 2 (COVID-19) Routine 07/13/2020 documented in this encounter Results * SARS COV 2 (COVID-19) (07/13/2020) EXTERNAL SARS COV 2 Negative Negative MANUALLY TRANSCRIBED RESULTS Comment:result in the urgent care encounter NASOPHARYNGEAL 07/13/2020 us Scanning Provider External MICROBIOLOGY - GENERA L ORDERABLES Final Result MANUALLY TRANSCRIBED RESULTS documented in this encounter Visit Diagnoses Not on filedocumented in this encounter Care Teams Parole Or Probation Officer Relationship Specialty Start Date End Date Lane Harrison MD [address] [place] [address], [address] [place] [address] PCP - General Pediatrics 12/26/17 documented as of this encounter
--- OUTSIDE RECORDS SUMMARY | 2025-03-06 12:21 | XMS_ITS | Encounter Summary ---
Author [facility] [employer] [facility] Address [id number] [address] [place] [address] Care Team Providers Care Under Cutter Name Role Phone Lane Harrison MD Primary Care Provider [phone] Reason for Visit * Reason Onset Date Comments Med Refill 11/17/2022 Encounter Details Date Type Department Care Team (Late st Contact Info) Description 11/17/2022 Refill [facility] [address] [phone] Bertha Martines CMA Social History Tobacco Use [...] documented as of this encounter Care Teams Under Cutter Relationship Specialty Start Date End Date Lane Harrison MD [address] [place] [address], [address] [place] [address] PCP - General Pediatrics 12/26/17 documented as of this encounter
--- OUTSIDE RECORDS SUMMARY | 2025-03-06 12:21 | XMS_ITS | Encounter Summary ---
Author Organization [facility] [employer] [facility] Address [id number] [address] [place] [address] Care Team Providers Care Shipping And Receiving Coordinator Name Role Phone Lane Harrison MD Primary Care Provider [phone] Reason for Visit * Reason Comments Med Refill Encounter Details Date Type Department Care Team (Late st Contact Info) Description 02/27/2025 Refill [facility] [address] [place] [address] [address] [place] [address] Lane Harrison MD [address] [place] [address], [address] [place] [address] Social History Tobacco Use Types [...] PHQ-2 Answer Date Recorded Total Score 0 01/16/2025 Childcare Answer Date Recorded Childcare Unknown 12/05/2018 Employment Answer Date Recorded Employment Unknown 12/05/2018 Hunger Screening Answer Date Recorded Within the past 12 months we worried whether our food would run out before we got money to buy more. Never True 01/16/2025 Within the past 12 months th e food we bought just didn't last and we didn't have money to get more. Never True 01/16/2025 Purpose - Life Answer Date Recorded Purpose and direction in life Unknown Comments No Sex and Gender Information Value Date Recorded Sex Assigned at Not on file Legal Sex Female 11:24 AM EDT Gender Identity Not on file Sexual Orientation Not on file documented as of this encounter Miscellaneous Notes * Telephone Encounter - RADHA Mendoza - 02/27/2025 2:56 PM EDT Refill request documented in this encounter Plan of Treatment Not on file documented as of this encounter Visit Diagnoses Not on filedocumented in this encounter Additional Health Concerns Assessment Noted Time PHQ-9 Depression Total Score: 0 01/17/20 25 10:17 AM EDT documented as of this encounter Care Teams Shipping And Receiving Coordinator Relationship Specialty Start Date End Date Lane Harrison MD [address] [place] [address], [address] [place] [address] PCP - General Pediatrics 12/26/17 documented as of this encounter
--- OUTSIDE RECORDS SUMMARY | 2025-03-06 12:21 | XMS_ITS | Encounter Summary ---
Author Organization [facility] Address [id number] [address] [place] [address] Care Team Providers Care Meteorological Aide Name Role Phone Lane Harrison MD Primary Care Provider Encounter Details Date Type Department Care Team (Late st Contact Info) Description 05/27/2024 Orders Only [facility] [address] [phone] External, Scanning Provider Social History [...] documented as of this encounter Care Teams Meteorological Aide Relationship Specialty Start Date End Date Lane Harrison MD [address] [place] [address], [place] [address] PCP - General Pediatrics 12/26/17 documented as of this encounter
--- OUTSIDE RECORDS SUMMARY | 2025-03-06 12:21 | XMS_ITS | Encounter Summary ---
Author Organization [facility] Address [id number] [address] [place] [address] Care Team Providers Care Food Counter Attendant Name Role Phone Lane Harrison MD Primary Care Provider [phone] Encounter Details Date Type Department Care Team (Late st Contact Info) Description 05/17/2023 Orders Only [facility] [address] [phone] External, Scanning Provider Social History [...] documented as of this encounter Care Teams Food Counter Attendant Relationship Specialty Start Date End Date Lane Harrison MD [address] [place] [address], [address] [place] [address] PCP - General Pediatrics 12/26/17 documented as of this encounter
--- OUTSIDE RECORDS SUMMARY | 2025-03-06 12:21 | XMS_ITS | Encounter Summary ---
Author Organization [facility] [employer] Address [id number] [address] [place] [address] Care Team Providers Care Loan Interviewer Name Role Phone Lane Harrison MD Primary Care Provider [phone] Encounter Details Date Type Department Care Team (Late st Contact Info) Description 05/03/2023 Orders Only [facility] [address] [facility] [address] [place] [address] Bertha Martines CMA Chronic pain [...] documented as of this encounter Care Teams Loan Interviewer Relationship Specialty Start Date End Date Lane Harrison MD [address] [place] [address], [address] [place] [address] PCP - General Pediatrics 12/26/17 documented as of this encounter
--- OUTSIDE RECORDS SUMMARY | 2025-03-06 12:21 | XMS_ITS | Encounter Summary ---
Author Organization [facility] [employer] [facility] Address [id number] [address] [place] [address] Care Team Providers Care Automatic Tire Tester Name Role Phone Lane Harrison MD Primary Care Provider [phone] Encounter Details Date Type Department Care Team (Late st Contact Info) Description 03/06/2025 Refill [facility] [address] [phone] Rebecca Barbosa RMA Social History Tobacco Use Types Packs/Day Years [...] * Telephone Encounter - RADHA Mendoza - 03/06/2025 10:37 AM EDT Refill request, sig stated once daily when patient takes bid documented in this encounter Plan of Treatment Not on file documented as of this encounter Visit Diagnoses Not on filedocumented in this encounter Additional Health Concerns Assessment Noted Time PHQ-9 Depression Total Score: 0 01/17/20 25 10:17 AM EDT documented as of this encounter Care Teams Automatic Tire Tester Relationship Specialty Start Date End Date Lane Harrison MD [address] [place] [address], [address] [place] [address] PCP - General Pediatrics 12/26/17 documented as of this encounter
--- OUTSIDE RECORDS SUMMARY | 2025-03-06 12:21 | XMS_ITS | Encounter Summary ---
Author Organization [facility] [employer] [facility] Address [id number] [address] [place] [address] Care Team Providers Care Brick Tester Name Role Phone Lane Harrison MD Primary Care Provider [phone] Reason for Visit * Reason Onset Date Comments Med Refill 01/25/2024 Encounter Details Date Type Department Care Team (Late st Contact Info) Description 01/25/2024 Refill [facility] [address] [phone] Bertha Martines CMA Social History Tobacco Use [...] documented as of this encounter Care Teams Brick Tester Relationship Specialty Start Date End Date Lane Harrison MD [address] [place] [address], [address] [place] [address] PCP - General Pediatrics 12/26/17 documented as of this encounter
--- OUTSIDE RECORDS SUMMARY | 2025-03-06 12:21 | XMS_ITS | Clinical Summary ---
Author Organization [employer] [facility] Address [id number] [address] [place] [address] Care Team Providers Care Financial Aid Director Name Role Phone Lane Harrison MD Primary Care Provider Allergies Active Allergy Reactions Criticality Noted Date Comments Erythromycin GI Disturbance 08/29/2013 Penicillins 12/10/2012 Medications lisinopriL (PRINIVIL,ZEST RIL) 20 mg tablet Take 1 tablet (20 mg total) by mouth in the morning. 180 tablet 3 5 Active lisinopriL (PRINIVIL,ZEST RIL) 20 mg tablet Take 1 tablet (20 mg total) by mouth in the morning and 1 tablet (20 mg total) before bedtime. 180 tablet 3 4 02/28/20 25 Discontinued Active Problems Problem Noted Date Diagnosed Date Acute left-sided low back pain without sciatica 11/24/2022 Essential hypertension 07/23/2020 Encounters Date Type Department Care Team Description 03/06/2025 Refill [facility] [address] [place] [address] Rebecca Barbosa RMA 02/27/2025 Refill [facility] [address] [facility] [address] Lane Harrison MD 01/16/2025 10:15 AM EDT Office Visit [facility] [address] [place] [address] Lane Harrison MD Gastroenteritis (Primary Dx); Essential hypertension; Calculus of gallbladder without cholecystitis without obstruction 01/16/2025 Travel 01/13/2025 Telephone [facility] [address] [place] [address] Lane Harrison MD Transition Of Care 01/09/2025 Orders Only [facility] [address] [facility] [place] [address] External, Scanning Provider from Last 3 Months Immunizations Immunization Administration Dates Next Due COVID-19, [...] Sign Reading Time Taken Comments Blood Pressure 161/83 01/16/2025 10:17 AM EDT Pulse 78 01/16/2025 10:17 AM EDT Temperature 36.4 C (97.6 F) 01/16/2025 10:17 AM EDT Respiratory Rate - - Oxygen Saturation 98% 11/24/2022 11: 24 AM EDT Inhaled Oxygen Concentration - - Weight 104.1 kg (229 lb 9.6 oz) 025 10:17 AM EDT Height 146.1 cm (4' 9.52 ) 01/16/2025 1 0:17 AM EDT Body Mass Index 48.79 01/16/2025 10:17 AM EDT Plan of Treatment Health Maintenance Due Date Last Done Comments Adult BMI Follow Up Plan 1981 Pap Smear 1984 Zoster (Shingles) Vaccine (1 of 2) 2013 COVID-19 Vaccine (3 - season) 2025, 11/10/2020 Influenza Vaccine 02/24/2025 Adult BMI Screening 01/16/2026 01/16/2025 Depression Screening 01/16/2026 01/16/2025 Tobacco Screening 01/16/2026 01/16/2025 Colon Cancer Screening 3 Year Cologuard 03/26/2027 1 , 09/03/2020 DTaP,Tdap and Td Vaccines (2 - Td or Tdap) 05/23/2034 05/23/2024 Medical Devices Not on file Procedures Procedure Name Priority Date/Time Associated Diagnosis Comments US RETROPERITONEAL COMPLETE Routine 01/08/2025 COLOGUARD NON-[facility] Routine 03/26/20 6:45 AM EDT Screening for colon cancer from Last 3 Months or Most Recently Relevant to Health Maintenance Results * Ultrasound retroperitoneal complete (01/08/2025) Anatomical Region Laterality Modality Body Ultrasound 01/08/2025 us Scanning Provider External IMG US ORDERABLES Fin al Result * Cologuard Non-[facility] (03/26/2024 6:45 AM EDT) EXTERNAL COLOGUARD Negative Negative 2023 8:38 PM EDT [facility] (CLIA #:[id number]) Comment: NEGATIVE TEST RESULT. A negative Cologuard [...] Mak et al, N Engl J Med 2014;370(14):6470-2592) The normal value (reference range) for this assay is negative. COLOGUARD RE-SCREENING RECOMMENDATION: Periodic colorectal cancer screening is an important part of preventive healthcare for asymptomatic individuals at average risk for colorectal cancer. Following a negative Cologuard result, the [place] Cancer Society and U.S. Multi-Society Task Force screening guidelines recommend a Cologuard re-screening interval of 3 years. References: [place] [employer] Society Guideline for Colorectal Cancer Screening: https://www.cancer.org/cancer/jgnqc-nhhmti-cbzdlk/skpsywirb-ybvhfqowv-nuumcia/ac s-rec ommendations.html.; Ramon ALVAREZ, Ed CR, Porter GironK, Colorectal Cancer Screening: Recommendations for Physicians and Patients from the U.S. Multi-Society Task Force on Colorectal Cancer Screening , Am J Gastroenterology 2017; 112:2429-6033. TEST DESCRIPTION: Composite algorithmic analysis of stool [...] screened with both Cologuard and colonoscopy. (Damaris Mejia. et al, N Engl J Med 2014;370(14):1967-6516.) Cologuard may produce a false negative or false positive result (no colorectal cancer or precancerous polyp present at colonoscopy follow up). A negative Cologuard test result does not guarantee the absence of CRC or advanced adenoma (pre-cancer). The current Cologuard screening interval is every 3 years. ([place] Cancer Society and U.S. Multi-Society Task Force). Cologuard performance data in a 10,000 patient pivotal study using colonoscopy as the reference method can be accessed at the following location: www.[employer]/results. Additional description of the Cologuard test process, warnings and precautions can be found at www.cologuard.com. Stool specimen (specimen) Rectum structure / Unknown 03/26/2024 6:45 AM EDT 03/27/2024 10:[address] Harrison MD LAB ORDERABLES Final Result [facility] (CLIA #:[id number]) [place] [address] [place] [address], from Last 3 Months or Most Recently Relevant to Health Maintenance Insurance [employer] Care Teams Financial Aid Director Relationship Specialty Start Date End Date Lane Harrison MD [address] [place] [address], [address] [place] [address] PCP - General Pediatrics 12/26/17
--- OUTSIDE RECORDS SUMMARY | 2025-03-06 12:21 | XMS_ITS | Encounter Summary ---
Author Organization [facility] Address [id number] [address] [place] [address] Care Team Providers Care Silverware Buffer Name Role Phone Lane Harrison MD Primary Care Provider [phone] Reason for Visit * Reason Comments Med Refill Encounter Details Date Type Department Care Team (Late st Contact Info) Description 11/04/2022 Refill [facility] [address] [place] [address] [address] [place] [address] Lane Harrison MD [address] [place] [address], [address] [place] [address] Social History Tobacco Use Types [...] documented as of this encounter Care Teams Silverware Buffer Relationship Specialty Start Date End Date Lane Harrison MD [address] [place] [address], [address] [place] [address] PCP - General Pediatrics 12/26/17 documented as of this encounter
--- OUTSIDE RECORDS SUMMARY | 2025-03-06 12:21 | XMS_ITS | Encounter Summary ---
[id number] [address] [place] [address] Care Team Providers Care Head Chef Name Role Phone Lane Harrison MD Primary Care Provider [phone] Encounter Details Date Type Department Care Team (Late st Contact Info) Description 01/29/2024 Telephone [facility] [address] [address] Bertha Martines CMA Social History [...] documented as of this encounter Care Teams Head Chef Relationship Specialty Start Date End Date Lane Harrison MD [address] [place] [address], [address] [place] [address] PCP - General Pediatrics 12/26/17 documented as of this encounter
--- OUTSIDE RECORDS SUMMARY | 2025-03-06 12:21 | XMS_ITS | Encounter Summary ---
Author Organization [facility] Address [id number] [address] [place] [address] Care Team Providers Care Casing Cooker Name Role Phone Lane Harrison MD Primary Care Provider [phone] Reason for Visit * Reason Comments Med Refill Encounter Details Date Type Department Care Team (Late st Contact Info) Description 01/25/2024 Refill [facility] [address] [place] [address] 1 [place] [address] Lane Harrison MD [address] [place] [address], [address] [place] [address] Social History Tobacco Use Types [...] documented as of this encounter Care Teams Casing Cooker Relationship Specialty Start Date End Date Lane Harrison MD [address] [place] [address], [place] [address] PCP - General Pediatrics 12/26/17 documented as of this encounter
--- NOTE | 2025-03-06 12:43 | CT_ITS ---
The [address] [address] Patient Name: LASHA [place] MRN: [id number] date: 1965 Sex: F Assigned Patient Location: ER Current Patient Location: .[facility] Accession/Order Number: [id number] Exam Date: 03/06/2025 13:58 Report Date: 03/06/2025 14:39 At the request of: JUSTA WATERS Procedure: CT abdomen pelvis w con CT ABDOMEN AND PELVIS WITH INTRAVENOUS CONTRAST: CLINICAL HISTORY: ab pain COMPARISON: None TECHNIQUE: Spiral images were obtained through the abdomen and pelvis following the administration of intravenous contrast. This CT exam was performed using one or more following dose reduction techniques: Automated exposure control, adjustment of the mA and/or kV according to patient size, or use of iterative reconstruction technique. FINDINGS: Lung Bases: [Mild lung scarring] Organs:Cholelithiasis. Liver portal vein pancreas spleen adrenal glands and kidneys all appear unremarkable. Aorta appears normal in caliber.[ GI: Stomach is grossly unremarkable. Small bowel appears nondilated. Colonic diverticulosis.[ Pelvis:[Urinary bladder and uterus appear unremarkable.] Peritoneum/Retroperitoneum:Trace free fluid. No free air. No lymphadenopathy.[ Abd wall/Bones:Abdominal wall demonstrates no acute findings. Osseous structures demonstrate degenerative change.[ CT/CT abdomen pelvis w con IMPRESSION: No acute process. Cholelithiasis. Colonic diverticulosis. Trace free fluid within the pelvis of uncertain etiology. Impression dictated by: Vishal Milner Jr., D.O. 03/06/2025 2:39 PM Dictation Location: [place] [address] Electronically authenticated by: [id number] Y Date: 03/06/2025 14:39
--- NOTE | 2025-03-06 13:03 | ED.ABDPAIN1 ---
HPI - Abdominal Pain General Chief Complaint: Abdominal Pain Stated Complaint: ABDOMINAL PAIN Time Seen by Provider: 03/06/25 12:29 Source: patient Mode of arrival: walk-in History of Present Illness HPI narrative: 59-year-old female presents to the ED with a complaint of left lower quadrant and suprapubic abdominal pain, intermittent for the past 3 days. Pain is described as crampy and achy, rated 3/10 currently but has been more severe at times. No clear aggravating or relieving factors. She reports some constipation but is passing flatus normally. Urinary output is normal, and she denies dysuria. No fever, chills, chest pain, shortness of breath, lightheadedness, or dizziness. She was hospitalized approximately 2 months ago for renal failure secondary to dehydration but reports normal oral intake now. Past surgical history significant for appendectomy many years ago. She does not take any medications at home and has no other complaints. Related Data Home Medications ?Medication ?Instructions ?Recorded ?Confirmed lisinopril 20 mg tablet 20 mg PO BID 01/07/25 03/06/25 Held on 01/09/25. Instructions: Resume on 01/17/25. Hold until you see your primary care doctor benzonatate 200 mg capsule 200 mg PO TID PRN cough 03/06/25 03/06/25 Previous Rx's ?Medication ?Instructions ?Recorded cephalexin 500 mg capsule 500 mg PO BID 7 days #14 caps 03/06/25 docusate sodium 100 mg capsule 100 mg PO DAILY #7 caps 03/06/25 (Dulcolax Stool Softener (docusate)) Allergies Allergy/AdvReac Type Severity Reaction Status Date / Time azithromycin Allergy Severe Unknown Verified 01/07/25 17:16 Penicillins Allergy Mild Blister Verified 05/23/24 01:54 [facility] Medical History (Updated 03/06/25 @ 15:08 by JT TORRES) HTN (hypertension) ?I10 - Essential (primary) hypertension (ICD-10) Surgical History (Updated 01/07/25 @ 21:27 by Katlin Riggins RN) History of ear surgery ?Z98.890 - Other specified postprocedural states (ICD-10) Hx of tonsillectomy ?Z90.89 - Acquired absence of other organs (ICD-10) Hx of appendectomy ?Z90.49 - Acquired absence of other specified parts of digestive tract (ICD-10) Family History (Updated 01/07/25 @ 21:28 by Katlin Riggins RN) Father Family history of COPD (chronic obstructive pulmonary disease) Family history of cancer Family history of diabetes mellitus Mother Family history of cancer Family history of diabetes mellitus Sister Family history of cancer Family history of diabetes mellitus Social History (Updated 01/07/25 @ 21:29 by Katlin Riggins RN) Within the past year, how often did you have a drink containing alcohol: monthly or less Smoking status: Never smoker Non-prescribed substance use: denies use Known occupational exposures/hazards: No Highest level of school completed/degree received: Associate degree: occupational, technical, vocational program Are you now , , , , never or living with a partner: never In a typical week, how many times do you talk on the telephone with family, friends, or neighbors: 3 or more times per week How often do you get together with friends or relatives: 3 or more times per week Little interest or pleasure in doing things: not at all Feeling down, depressed, or hopeless: not at all Feel stressed/tense/nervous/anxious/difficulty sleeping: not at all Do you think of yourself as: straight/heterosexual Gender Identity: female Exam Narrative Exam Narrative: General: Awake, alert, well-appearing, in no acute distress. HEENT: Normocephalic, atraumatic. Oropharynx moist, no erythema or exudate. Cardiovascular: Regular rate and rhythm, no murmurs, rubs, or gallops. Peripheral pulses 2+ and symmetric. Respiratory: Lungs clear to auscultation bilaterally, no wheezes, rales, or rhonchi. Normal respiratory effort. Abdomen: Soft, nondistended. Mild tenderness to palpation in LLQ and suprapubic area. No rebound, guarding, or rigidity. Bowel sounds present and normal. No masses, no hepatosplenomegaly, no CVA tenderness. Extremities: No edema, no tenderness, normal range of motion. Skin: Warm, dry, intact. No rashes or lesions. Neurologic: Alert and oriented x3, speech clear, motor and sensory intact, no focal deficits. Psych: Normal mood and affect. Constitutional Vital Signs, click to edit/add: Last Vital Signs Temp 98.4 F 03/06/25 12:21 Pulse 81 03/06/25 12:21 Resp 18 03/06/25 12:21 BP 178/80 H 03/06/25 15:00 Pulse Ox 97 03/06/25 15:20 O2 Del Method Room Air 03/06/25 12:21 Course Vital Signs Vital signs: Vital Signs Temperature 98.4 F 03/06/25 12:21 Pulse Rate 81 03/06/25 12:21 Respiratory Rate 18 03/06/25 12:21 Blood Pressure 177/93 H 03/06/25 12:21 Pulse Oximetry 96 03/06/25 12:21 Oxygen Delivery Method Room Air 03/06/25 12:21 Temperature 98.4 F 03/06/25 12:21 Pulse Rate 81 03/06/25 12:21 Respiratory Rate 18 03/06/25 12:21 Blood Pressure 178/80 H 03/06/25 15:00 Pulse Oximetry 97 03/06/25 15:20 Oxygen Delivery Method Room Air 03/06/25 12:21 MDM - Abdominal Pain MDM Narrative Medical decision making narrative: 59-year-old female presents with LLQ and suprapubic abdominal pain. Exam shows mild focal tenderness without rebound or guarding. Labs significant for mild leukocytosis (WBC 10.8), BUN/Cr normal. Urinalysis positive for blood, leukocytes, and trace bacteria. CT abdomen/pelvis was obtained and is normal, with no evidence of diverticulitis, obstruction, or other acute intra-abdominal process. Given symptoms, UA findings, and negative imaging, most likely diagnosis is uncomplicated urinary tract infection. Patient remained hemodynamically stable through her visit here and and is tolerating oral intake. Will treat with oral antibiotics, encourage hydration, and provide strict return precautions for worsening pain, fever, vomiting, or inability to tolerate oral intake. Differential Diagnosis Differential diagnosis: Likely abdominal pain, constipation, diverticulitis and small bowel obstruction Medical Records Attestation: I reviewed the patient's medical records. Lab Data Attestation: I reviewed the patient's lab results. Labs: Lab Results 03/06/25 Range/Units 12:54 WBC 10.8 (4.0-11.0) 10^3/uL RBC 3.74 L (4.20-5.40) 10^6/uL Hgb 11.2 L (12.0-16.0) g/dL Hct 33.3 L (36.0-48.0) % MCV 89.0 (81.0-99.0) fL MCH 29.9 (26.7-34.0) pg MCHC 33.6 (29.9-35.2) g/dL RDW 14.4 (11.0-15.0) % Plt Count 430 (150-450) 10^3/uL MPV 9.4 L (9.5-13.5) fL Neut % (Auto) 66.6 (43.0-75.0) % Lymph % (Auto) 21.5 (20.5-60.0) % [place] % (Auto) 8.2 (1.7-12.0) % Eos % (Auto) 2.2 (0.9-7.0) % Baso % (Auto) 0.8 (0.2-2.0) % Neut # (Auto) 7.2 H (1.4-6.5) 10^3/uL Lymph # (Auto) 2.3 (1.2-3.8) 10^3/uL [place] # (Auto) 0.9 H (0.3-0.8) 10^3/uL Eos # (Auto) 0.2 (0.0-0.7) 10^3/uL Baso # (Auto) 0.1 (0.0-0.1) 10^3/uL Abs Immat Gran (auto) 0.07 H (0.00-0.03) 10^3/uL Imm/Tot Granulo (auto) 0.7 H (0.0-0.5) % Sodium 142 (136-145) mmol/L Potassium 4.0 (3.5-5.1) mmol/L Chloride 108 H (98-107) mmol/L Carbon Dioxide 24.6 (21.0-32.0) mmol/L Anion Gap 13.4 BUN 16.0 (7.0-18.0) mg/dL Creatinine 0.74 (0.55-1.02) mg/dL Est GFR ( Amer) >60 (>=60 mL/min/1.73m^2) Est GFR (Non-Af Amer) >60 (>=60 mL/min/1.73m^2) BUN/Creatinine Ratio 21.6 Glucose 99 (74-106) mg/dL Calcium 8.7 (8.5-10.1) mg/dL Total Bilirubin 0.2 (0.2-1.0) mg/dL AST 15 (15-37) U/L ALT 18 (14-59) U/L Alkaline Phosphatase 82 (46-116) U/L Total Protein 7.0 (6.4-8.2) g/dL Albumin 3.2 L (3.4-5.0) g/dL Globulin 3.8 g/dL Albumin/Globulin Ratio 0.8 Urine Color Lt. yellow (YELLOW) Urine Clarity Clear (CLEAR) Urine pH 5.5 (5.0-9.0) Ur Specific [place] 1.015 (1.005-1.025) Urine Protein Trace (NEG/TRACE) mg/dL Urine Glucose (UA) Negative (NEGATIVE) mg/dL Urine Ketones Negative (NEGATIVE) mg/dL Urine Occult Blood Moderate A (NEGATIVE) Urine Nitrite Negative (NEGATIVE) Urine Bilirubin Negative (NEGATIVE) Urine Urobilinogen 0.2 (0.2-1.0) EU/dL Ur Leukocyte Esterase Small A (NEGATIVE) Urine RBC 10-20 A (0-2) #/HPF Urine WBC 5-10 A (NONE SEEN) #/HPF Ur Squamous Epith Cells Few A (NONE/RARE) #/LPF Urine Crystals None seen (None Seen) #/HPF Urine Bacteria Trace A (NONE SEEN) #/HPF Urine Casts None seen (NONE SEEN) #/LPF Urine Mucus None seen (NONE SEEN) Ur [place] [place] Discharge Chief Complaint: Abdominal Pain Clinical Impression: UTI (urinary tract infection), Abdominal pain Patient Disposition: Home, Self-Care Time of Disposition Decision: 15:08 Condition: Good Mode of Transportation: Private Vehicle Prescriptions / Home Meds: New cephalexin 500 mg capsule 500 mg PO BID 7 Days Qty: 14 0RF docusate sodium [Dulcolax Stool Softener (dss)] 100 mg capsule 100 mg PO DAILY Qty: 7 0RF No Action lisinopril 20 mg tablet 20 mg PO BID benzonatate 200 mg capsule 200 mg PO TID PRN (Reason: cough) Print Language: Yi Instructions: Abdominal Pain (ED), Urinary Tract Infection in Older Adults (ED) Additional Instructions: Discharge Instructions ? Urinary Tract Infection You were seen today for lower abdominal pain. Your CT scan and blood work were normal. Your urine test showed evidence of a urinary tract infection (UTI). Treatment: Take Keflex (cephalexin) 500 mg by mouth twice daily for 7 days. Finish the entire course of antibiotics, even if you start to feel better. Drink plenty of fluids to help flush bacteria from your system. You may use acetaminophen or ibuprofen as needed for pain, unless you were told not to. When to Seek Care: Return to the ER or contact your doctor right away if you notice: Fever or chills Severe or worsening abdominal pain or back pain Nausea, vomiting, or inability to keep fluids down Blood in the urine that is getting worse Feeling lightheaded or faint Follow up with your primary care provider in the next few days to ensure your symptoms are improving. Referrals: [facility] [place] [Primary Care Provider, Family Practice] - 1 week Discharge Date/Time: 03/06/25 15:32
[2025-03-06 13:04] LABS: Hematocrit 33.3 % (36.0-48.0); Hemoglobin 11.2 g/dL (12.0-16.0); Immature Granulocytes Abs Auto 0.07 10^3/uL (0.00-0.03); Immature Granulocytes Pct Auto 0.7 % (0.0-0.5); Lymphocytes Absolute Auto 2.3 10^3/uL (1.2-3.8); Mean Corpuscular HGB Conc 33.6 g/dL (29.9-35.2); Mean Corpuscular Hemoglobin 29.9 pg (26.7-34.0); Mean Corpuscular Volume 89.0 fL (81.0-99.0); Platelet Count 430 10^3/uL (150-450); Red Blood Count 3.74 10^6/uL (4.20-5.40); White Blood Count 10.8 10^3/uL (4.0-11.0)
[2025-03-06 13:05] LABS: Glucose Urine UA NEGATIVE (NEGATIVE)
[2025-03-06] MEDS: 0.9 % SODIUM CHLORIDE 1,000 ML 999 ML IV (13:10)
[2025-03-06 13:17] LABS: Cast Seen? NONE SEEN #/LPF (NONE SEEN); Crystals Seen? None Seen #/HPF (None Seen); Urine Culture Indicated YES-FRMC
[2025-03-06 13:19] LABS: Alanine Aminotransferase 18 U/L (14-59); Albumin Globulin Ratio 0.8; Albumin Level 3.2 g/dL (3.4-5.0); Alkaline Phosphatase 82 U/L (46-116); Anion Gap 13.4; Aspartate Amino Transferase 15 U/L (15-37); Blood Urea Nitrogen 16.0 mg/dL (7.0-18.0); Calcium 8.7 mg/dL (8.5-10.1); Carbon Dioxide 24.6 mmol/L (21.0-32.0); Chloride 108 mmol/L (98-107); Estimated GFR (African America >60 (>=60 mL/min/1.73m^2); Estimated GFR (Non-African Ame >60 (>=60 mL/min/1.73m^2); Globulin 3.8 g/dL; Glucose 99 mg/dL (74-106); Potassium 4.0 mmol/L (3.5-5.1); Sodium 142 mmol/L (136-145); Total Protein 7.0 g/dL (6.4-8.2)
== END 2025-03-06 15:32 | disposition home or self-care (01) ==
PROVIDERS: Physician Assistant; Emergency Provider Emergency Medicine; Family Provider Internal Medicine; PCP Internal Medicine
DX: N39.0 Urinary tract infection, site not specified (principal); R10.32 Left lower quadrant pain; Z90.49 Acquired absence of other specified parts of digestive tract
CPT/HCPCS: 36415; 74177; 80053; 81001; 85025; 87086; 99285; Q9967